=== PATIENT | female | born 1990 | race Caucasian/White ===

== ENCOUNTER → 2020-08-18 10:40 | Outpatient (CLI) | payer BC, SELFPAY ==
--- NOTE | 2020-08-18 | DI.US.S_ITS ---
PROCEDURE: US EXTREMELY NONVASC UPPER RT INDICATIONS: RIGHT SHOULDER MASS TECHNIQUE: Real-time scanning was performed of the right shoulder , with image documentation. COMPARISON: None. FINDINGS: In the subcutaneous tissues, there is a large in capsulated mass isoechoic to adjacent subcutaneous fat measuring about 7.8 x 4.9 x 8.3 cm, incompletely imaged on ultrasound. IMPRESSION: Partially imaged soft tissue mass in the right shoulder with echogenicity suggesting lipoma. Larger [id number] imaging with MRI is recommended. Dictated by: Peri Damon M.D. on 08/18/2020 at 12:11 Approved by: Peri Damon M.D. on 08/18/2020 at 12:12
== END ==
PROVIDERS: PCP Family Medicine; Referring Provider Family Medicine; Visit Provider Family Medicine
DX: R22.31 Localized swelling, mass and lump, right upper limb (principal)
CPT/HCPCS: 76882

== ENCOUNTER → 2020-09-18 10:09 | Outpatient (CLI) | payer BC, SELFPAY ==
[2020-09-18 10:43] LABS: COVID19 -Nasal RAPID Negative (Negative)
== END ==
PROVIDERS: PCP Family Medicine; Visit Provider Surgery
DX: Z20.822 Contact with and (suspected) exposure to COVID-19 (principal)
CPT/HCPCS: 87635; C9803

== ENCOUNTER 2020-09-21 08:57 | Day surgery (SDC) | payer BC, SELFPAY ==
--- NOTE | 2020-09-21 | PATH_ITS ---
[facility] Accession Number: [id number] . 01 Material submitted: . back - RIGHT UPPER BACK MASS . 01 Diagnosis: Right Upper Back, Excision: Mature adipose tissue, consistent with lipoma. MRV 09/25/2020 0922 Local . 01 Electronically signed: . Glen Kinney MD, Dermatopathologist NPI- [id number] . 01 Gross description: . The specimen is received in formalin, labeled right upper back mass and consists of an 11.1 x 10.0 x 4.5 cm andres-yellow fragment of adipose tissue, which is inked blue and sectioned to reveal andres-yellow lobulated cut surfaces. Vessel Engineer sections are submitted in cassettes [id number]. ([id number]) /MRV 09/22/2020 1040 Local . 01 Pathologist provided ICD-10: D17.9 . 01 CPT . 245236 Performed at: 01 [facility] [address] [place] [address] [address], [place], [place] [id number] MD Mitch Malloy MD Phone: [phone]
[2020-09-21 09:53] VITALS: BP 111/66; PULSE 62; RESP 14; TEMP 36.2; O2SAT 100; BMI 23.6
[2020-09-21] MEDS: LACTATED RINGERS 1,000 ML 100 ML IV (10:07)
--- NOTE | 2020-09-21 10:07 | PM.PREOP ---
Pre-operative Note COVID-19 COVID-19 status: Negative Result date/Date tested (Pos, Neg/Pending): 09/21/20 Interval Note History & Physical reviewed/Exam performed by Physician: Yes Changes to H&P: No
--- NOTE | 2020-09-21 10:46 | SUR.OPER ---
Lateral on padded OR bed, head on pillow, gel axillary roll not used per anesthesia decision, bottom leg bent with gel pad under knee to foot, upper leg straight and supported with pillows. Upper arm supported by pillows and secured over bottom arm to padded arm board. Safety belt at hip, tape over blanket lower legs.
[2020-09-21] MEDS: BUPIVACAINE 0.25% W/ EPI 30 ML VIAL INJ (10:50)
[2020-09-21] MEDS: CEFAZOLIN 1 GM VIAL 2 GM IV (10:51)
--- NOTE | 2020-09-21 11:16 | PM.OP.1 ---
Operative Date/Time/Diagnoses Date of procedure: 09/21/20 Time of procedure: 11:16 Pre-op diagnosis: Right upper back mass Post-op diagnosis: same Procedure & Clinicians Procedure: Excision of right upper back mass Same procedure as scheduled: Yes Indications: Neoplasm of uncertain behavior, pain and paresthesias, progressively increasing size of the mass Surgeon: Mere Humphries Click Yes if Unassisted: Yes Anesthesia Type: General Operative Notes Findings: Large firm fatty mass Specimen(s): other (Right upper back mass) Estimated Blood Loss (mL): 1 Procedure in detail: The patient was brought to the operating room, placed supine on the operating table, and sequential compression devices were placed on both legs and turned on. Appropriate perioperative antibiotics were given. General anesthesia was induced by the anesthesiologist and the patient was intubated with an LMA. The patient was then positioned on her left side with all bony prominences padded. The right upper back, shoulder, flank, and neck were prepped and draped in sterile fashion. Surgical time-out was conducted. At this point local anesthetic was injected using 0.25% Marcaine with epi, at the site of the planned incision. A 10cm vertical skin incision was then made overlying the apex of the mass. Dissection was carried down through the dermis, and subcutaneous tissue until the mass was reached. A firm fatty mass was encountered, which was adherent to the underlying structures with bands of fascia. The fascial bands were dissected, and hemostasis was maintained using electrocautery. With blunt and sharp dissection the entire mass was dissected from the underlying structures as well as the surrounding subcutaneous fat tissue. Once the mass was freed it was passed off the table for pathology. Attention was then turned back to the defect. Hemostasis was achieved using cautery. Additional local anesthetic was injected into the surrounding tissues. The incision was then closed with interrupted 3-0 Vicryl sutures, and running 4-0 Monocryl sutures. The skin edges were sealed with Dermabond. The patient was then transferred onto her [facility]. She was awakened from anesthesia and extubated. She was transferred to the postanesthesia care unit in stable condition. She tolerated the procedure well. Needle sponge and instrument counts were correct x2 at the end of the case. Complications: none Post-operative Condition: stable Disposition: PACU
[2020-09-21 11:22] VITALS: BP 106/65; PULSE 88; RESP 13; TEMP 36.6; O2SAT 100
[2020-09-21 11:26] VITALS: BP 90/57; PULSE 81; RESP 12; O2SAT 100
[2020-09-21 11:31] VITALS: BP 105/53; PULSE 78; RESP 13; O2SAT 100
[2020-09-21 11:32] VITALS: BP 105/53; PULSE 72; RESP 12; TEMP 36.3; O2SAT 100
== END 2020-09-21 11:50 | disposition home or self-care (01) ==
PROVIDERS: PCP Family Medicine; Referring Provider Family Medicine; Visit Provider Surgery
PROC: (CPT 21931; principal; 2020-09-21 10:45)
DX: R22.2 Localized swelling, mass and lump, trunk (principal); M54.89 Other dorsalgia; R20.2 Paresthesia of skin; D17.1 Benign lipomatous neoplasm of skin and subcutaneous tissue of trunk
CPT/HCPCS: 21931; 36415; 81025; J0690; J1100; J2250; J2405; J2704; J3010